=== PATIENT | male | born 1950 | race Caucasian/White ===

== ENCOUNTER 2016-11-07 15:16 | Emergency (ER) | payer OTHER ==
[2016-11-07] MEDS ORDERED: KETOROLAC TROMETHAMINE 30 MG/1ML VIAL IVP ONE (15:29)
--- NOTE | 2016-11-07 15:44 | ED Physician Documentation ---
General Adult - HISTORIAN Historian: patient - HPI Stated Complaint: chest pain Chief Complaint: General Adult Further Comments: yes (65 year old male patient presents with complaint of midsternal chest wall pain, patient states the pain started at lunch. Denies nausea, c/o mild diaphoresis which resolved on the way to the Er, denies SOB. Cannot recall how he bruised his chest.) - ROS CONST: no problems EYES/ENT: none CVS/RESP: none GI/: none MS/SKIN/LYMPH: none NEURO/PSYCH: denies: headache - PAST HX Past History: hypertension, other (PPM) Other History: other (GERD) Surgeries/Procedures: other (PPM, Lumbar fusion L3, L4, L5, S1) Allergies/Adverse Reactions: Allergies Allergy/AdvReac Type Severity Reaction Status Date / Time No Known Allergies Allergy Verified 11/07/16 15:29 Home Medications: Ambulatory Orders Medication Instructions Recorded Aspirin [Adult Low Dose Aspirin EC] 81 mg PO QDAY 11/07/16 Esomeprazole Magnesium [Nexium] 11/07/16 Lisinopril [Zestril] 10 mg PO 11/07/16 Nitroglycerin [Nitroglycerin] 11/07/16 - SOCIAL HX Smoking History: cigarettes - FAMILY HX Family History: No - VITAL SIGNS Vital Signs: Vital Signs Temp Pulse Resp BP Pulse Ox 98.9 F 70 20 148/90 100 11/07/16 15:25 11/07/16 15:25 11/07/16 15:25 11/07/16 15:25 11/07/16 15:25 - REVIEWED ASSESSMENTS Nursing Assessment Reviewed: Yes Vitals Reviewed: Yes Progress - EKG/XRAY/CT EKG: rhythm (SR, with pacer spikes noted, no acute changes. ) ED Results Lab/Radiology - Orders Orders: ED Orders Category Date Time Status Ketorolac Tromethamine [Toradol] Med 11/07/16 15:29 Once 30 mg IVP NOW ONE EKG WITH COMPARISON Stat Ther 11/07/16 15:21 Ordered General Adult Physical Exam - PHYSICAL EXAM GENERAL APPEARANCE: [id number] N EENT: eye inspection normal, CHARLY RESPIRATORY: no resp distress, breath sounds normal, other (Chest wall tenderness with palpation along right sternal border and over distal sternum left border; 3cm area of ecchymosis noted. ) CVS: reg rate & rhythm, heart sounds normal, equal pulses, no murmur, no gallop , PMI nml, no JVD, no friction rub, 24 ABDOMEN: soft, no organomegaly, normal bowel sounds, no abdominal bruit, no distension SKIN: normal color, warm/dry, NR, INT, PAL, DR EXTREMITIES: non-tender, normal range of motion, no evidence of injury, no edema , J, [employer] NEURO: oriented X3, CN's nml as tested, motor nml, sensation nml, mood/affect nml Discharge Clincal Impression: Non-cardiac chest pain Additional Instructions: Rest A prescription has been sent to the pharmacy. Start it tonight at bedtime. Return to Er if you have Chest pain WITH shortness of breath, nausea and diaphoresis. Home Medications: Ambulatory Orders Aspirin [Adult Low Dose Aspirin EC] 81 mg PO QDAY 11/07/16 Esomeprazole Magnesium [Nexium] 11/07/16 Lisinopril [Zestril] 10 mg PO 11/07/16 Nitroglycerin [Nitroglycerin] 11/07/16 Condition: Stable Disposition: 01 HOME, SELF-CARE Decision to Admit: NO Decision Time: 15:54
[2016-11-07 17:29] VITALS: BP 151/82
== END 2016-11-07 16:16 | disposition home or self-care (01) ==
LOC: ED 15:16
DX: R07.9 Chest pain, unspecified (principal)
CPT/HCPCS: 93005; 96374; 99283; J1885; S1016